=== PATIENT | female | born 1990 | race Caucasian/White ===

== ENCOUNTER 2020-10-03 14:55 | Emergency (ER) | payer OTHER, SELFPAY ==
[2020-10-03 15:16] VITALS: BP 141/88; PULSE 87; RESP 16; TEMP 36.9
--- NOTE | 2020-10-03 15:58 | ED.EAR ---
HPI - Ear Problem General Chief complaint: Ear Stated complaint: Possible Ear infection Time Seen by Provider: 10/03/20 15:58 Source: patient Limitations: no limitations History of Present Illness HPI Narrative: Julieta Barth is a 30 yo female with no PMH who comes with L ear, ringing, muffled hearing. 9 jacques ago had cold sympoms that are mostly resolved. Still has ear pain and is a feeling back to normal; no fever, no nausea, no vomiting Related Data Allergies Allergy/AdvReac Type Severity Reaction Status Date / Time No Known Allergies Allergy Verified 10/03/20 15:36 Review of Systems Review of Systems: CONSTITUTIONAL: Denies fever, chills, sweats. EYES: Denies visual changes, redness, discharge. ENT: has rhinorrhea, has congestion, sore throat, left otalgia. CARDIOVASCULAR: Denies chest pain, palpitations, edema. RESPIRATORY: Denies dyspnea, wheezing, cough GASTROINTESTINAL: Denies abdominal pain, nausea, vomiting, diarrhea. GENITOURINARY: Denies dysuria, hematuria, abnormal discharge SKIN: Denies rash or itching. NEUROLOGIC: Denies numbness, or focal weakness. PSYCHIATRIC: Denies anxiety or depression. PMFSH Past Medical History Medical History (Updated 10/03/20 @ 16:12 by Tosin Serna CNP) No acute medical problems Surgical History Surgical History (Updated 10/03/20 @ 16:00 by Tosin Serna CNP) H/O tubal ligation Family History Family History Other Hypertension Social History Social History (Updated 10/03/20 @ 16:07 by Tosin Serna CNP) Smoking status: Never smoker Alcohol intake: former Alcohol use details: Quit drinking the last few years Comments At time of signature, I agree with nursing past medical, surgical, social and family history. There is no relevant family history pertinent to the presenting complaint. Exam Narrative: GENERAL: This is a well-nourished, well-developed patient, in mild distress. HEAD: normocephalic, atraumatic. EYES: Sclera clear/white. Vision is grossly intact. EARS: External ears normal, auditory canals clear on right and erythema on left with fluid behind TM on left so that its bulging . Hearing grossly intact, although hearing decreased on left. NOSE: External nose normal without nasal discharge, nares without redness, no rhinorrhea. THROAT: Mucous membranes moist, posterior pharynx erythema NECK: Neck supple, non-tender CARDIOVASCULAR: Regular rate and rhythm without murmurs, gallops, or rubs. RESPIRATORY: Clear to auscultation. Breath sounds equal bilaterally. No wheezes, rales, or rhonchi. GASTROINTESTINAL: Not done SKIN: warm, intact with no suspicious lesions or rash, good texture and turgor. NEURO: awake, alert, and oriented to person, place and time. There were no obvious focal neurologic abnormalities. Steady gait EXTREMITIES: Normal range of motion. BACK: Nontender without deformity Course Course Emergency Course: [facility] complaints of left ear pain and muffling and generalized sinus symptoms that have improved since this started in the last 9 days Started on polymyxin Eardrops and recommended use of Zyrtec daily and Flonase Vital Signs Vital signs: Vital Signs Temperature 98.4 F 10/03/20 15:16 Pulse Rate 87 10/03/20 15:16 Respiratory Rate 16 10/03/20 15:16 Blood Pressure 141/88 H 10/03/20 15:16 Temperature 98.4 F 10/03/20 15:16 Pulse Rate 87 10/03/20 15:16 Respiratory Rate 16 10/03/20 15:16 Blood Pressure 141/88 H 10/03/20 15:16 Medical Decision Making Differential Diagnosis Differential Diagnosis: Sinusitis versus rhinosinusitis versus Covid versus ear infection Vital Signs Vital Signs: Vital Signs Temperature 98.4 F 10/03/20 15:16 Pulse Rate 87 10/03/20 15:16 Respiratory Rate 16 10/03/20 15:16 Blood Pressure 141/88 H 10/03/20 15:16 Temperature 98.4 F 10/03/20 15:16 Pulse Rate
== END 2020-10-03 16:42 | disposition home or self-care (01) ==
PROVIDERS: Emergency Provider Nurse Practitioner
DX: H66.002 Acute suppurative otitis media without spontaneous rupture of ear drum, left ear (principal)
CPT/HCPCS: 99203; G0463

== ENCOUNTER 2021-12-20 13:40 | Emergency (ER) | payer OTHER, SELFPAY ==
--- NOTE | 2021-12-20 13:43 | ED.URI ---
HPI - URI/Sore Throat General Stated Complaint: sore throat Time Seen by Provider: 12/20/21 13:43 Source: patient and RN notes reviewed History of Present Illness HPI Narrative: patient is a 31-year-old female who presents to urgent care with complaints a sore throat for 2 days. Patient denies any fever, nausea, vomiting exposures to illness. Patient on anything [id number] for her symptoms. No other acute complaints. No acute distress noted. Patient aware of the plan of care. Some parts of this dictation were generated by voice recognition software and may contain typographical and/or grammatical inaccuracies. Related Data Home Medications Medication Instructions Recorded Confirmed No Home Medications 12/20/21 12/20/21 Allergies Allergy/AdvReac Type Severity Reaction Status Date / Time No Known Allergies Allergy Verified 12/20/21 14:01 Review of Systems Review of Systems: CONSTITUTIONAL: Denies fever, chills, or sweats. EYES: Denies visual changes, redness, or discharge. ENT: Denies rhinorrhea, congestion. Reports a sore throat CARDIOVASCULAR: Denies chest pain, palpitations, or edema. RESPIRATORY: Denies cough or dyspnea. GASTROINTESTINAL: Denies abdominal pain, nausea, vomiting, or diarrhea. GENITOURINARY: Denies dysuria or hematuria. SKIN: Denies rash or itching. MUSCULOSKELETAL: Denies back pain, joint pain, or myalgia. NEUROLOGIC: Denies headache, numbness, or weakness. All other systems reviewed are negative, except as documented in HPI. [facility] Past Medical History Medical History (Updated 12/20/21 @ 14:02 by MORENITA Booker) No acute medical problems Surgical History Surgical History (Updated 10/03/20 @ 16:00 by Tosin Serna, JAZMINE) H/O tubal ligation Family History Family History Other Hypertension Social History Social History (Updated 10/03/20 @ 16:07 by Tosin Serna, JAZMINE) Smoking status: Never smoker Alcohol intake: former Alcohol use details: Quit drinking the last few years Comments At the time of my signature, I reviewed and agree with the nursing past medical, surgical, social, and family history. There is no relevant family history pertinent to the patient complaint. Exam Narrative: GENERAL: This is a well-nourished, well-developed patient, in no apparent distress. HEAD: normocephalic, atraumatic. EYES: PERRL. Sclera clear/white. Vision is grossly intact. EARS: External ears normal, auditory canals clear and without drainage, TMs normal without perforation. Hearing grossly intact. NOSE: External nose normal with no obvious nasal discharge, nares without redness, no rhinorrhea. THROAT: Mucous membranes moist, mild erythema to posterior oropharynx with mild bilateral tonsillar edema without exudate or ulceration. Moderate postnasal drainage. NECK: Neck supple, non-tender without lymphadenopathy CARDIOVASCULAR: Regular rate and rhythm without murmurs, gallops, or rubs. RESPIRATORY: Clear to auscultation. Breath sounds equal bilaterally. No wheezes, rales, or rhonchi. SKIN: warm, intact with no suspicious lesions or rash, good texture and turgor. NEURO: awake, alert, and oriented to person, place and time. There were no obvious focal neurologic abnormalities. EXTREMITIES: No clubbing, cyanosis, or edema. Course Course Level of Care: Express Care Visit Vital Signs Vital signs: Vital Signs Temperature 98 F 12/20/21 13:44 Pulse Rate 87 12/20/21 13:44 Respiratory Rate 16 12/20/21 13:44 Blood Pressure 122/67 12/20/21 13:44 Pulse Oximetry 100 12/20/21 13:44 Oxygen Delivery Room Air 12/20/21 13:44 Temperature 98 F 12/20/21 13:44 Pulse Rate 87 12/20/21 13:44 Respiratory Rate 16 12/20/21 13:44 Blood Pressure 122/67 12/20/21 13:44 Pulse Oximetry 100 12/20/21 13:44 Oxygen Delivery Room Air 12/20/21 13:44 Review MDM - URI/Cheri Thro
[2021-12-20 13:44] VITALS: BP 122/67; PULSE 87; RESP 16; TEMP 36.6; O2SAT 100
== END 2021-12-20 14:05 | disposition home or self-care (01) ==
PROVIDERS: Emergency Provider Nurse Practitioner Family
DX: J02.9 Acute pharyngitis, unspecified (principal)
CPT/HCPCS: 87081; 87880; 99213; G0463

== ENCOUNTER 2022-05-03 16:50 | Emergency (ER) | payer OTHER, SELFPAY ==
[2022-05-03 16:57] VITALS: BP 120/69; PULSE 92; RESP 14; TEMP 36.9; O2SAT 100
--- NOTE | 2022-05-03 17:31 | ED.URI ---
HPI - URI/Sore Throat General Chief Complaint: Upper Respiratory Infection Stated Complaint: Sore Throat Time Seen by Provider: 05/03/22 17:20 Source: patient, RN notes reviewed and old records reviewed Mode of arrival: ambulatory Limitations: no limitations History of Present Illness HPI Narrative: 32-year-old female presents to [facility] with complaints sore throat headache since Saturday patient states she has taken some ibuprofen for her complaints. Patient reports that she has had some nasal congestion and chills does not know about any fevers. Patient reports her kids have had strep also this past week. Patient has not had any medication prior to arrival today. Patient reports that she took home COVID test that was negative. MD elicited complaint: sore throat and other (Headache) Onset (ago): day(s) (2) Pain scale (0-10): 9 Treatments prior to arrival: ibuprofen Related Data Home Medications Medication Instructions Recorded Confirmed No Home Medications 12/20/21 05/03/22 Allergies Allergy/AdvReac Type Severity Reaction Status Date / Time No Known Allergies Allergy Verified 05/03/22 17:02 Review of Systems Review of Systems: CONSTITUTIONAL Positive malaise, chills, sweats, or fever. EYES: Denies visual changes, redness, or discharge. ENT: Reports rhinorrhea, congestion, sinus pain, no otalgia positive for sore throat. CARDIOVASCULAR: Denies chest pain, palpitations, or edema. RESPIRATORY: Reports cough.? Denies dyspnea. GASTROINTESTINAL: Denies abdominal pain, nausea, vomiting, diarrhea SKIN: Denies rash or itching. MUSCULOSKELETAL: Denies myalgia. NEUROLOGIC: Positive headache. All systems reviewed & are unremarkable except as noted in HPI and below PMFSH Past Medical History Medical History No acute medical problems Surgical History Surgical History H/O tubal ligation Family History Family History Other Hypertension Social History Social History (Updated 05/06/22 @ 08:12 by Lilibeth Urbano NP) Smoking packs per day: 0.5 Smoking cigarettes per day: 10.0 Years smoked: 6 Smoking pack-years: 3.00 Smoking status: Current every day smoker Alcohol intake: former Alcohol use details: Quit drinking the last few years Substance use type: does not use Living arrangements: with family Gender identity (if verbalized by the patient): Female Comments At time of signature, agree with nursing past medical, surgical, social and family history. There is no relevant family history pertinent to the presenting complaint Exam Narrative: GENERAL: Well-appearing, well-nourished, and in no acute distress. HEAD: Normocephalic EYES: PERRLA, conjunctivae clear ENT: Nares clear, turbinates edematous and erythematous, clear to light green discharge. Mucous membranes moist. TM pearly house with dull light reflex bilaterally; no tragal tenderness. Oropharynx erythematous without lesions. Tonsils red mildly enlarged and without exudate, no drooling, no hoarseness, no trismus, uvula midline. NECK: Supple. No lymphadenopathy CHEST: Clear to auscultation, breath sounds equal. No wheezing, rhonchi, rales, or stridor. No respiratory distress, speaks in full sentences. SAO2 100% on room air HEART: Regular rate and rhythm. No murmur heard. SKIN: Warm, dry, no rash. NEURO: Alert and oriented x3. PSYCH: Normal mood and affect Course Course Emergency Course: Patient is aware of diagnosis, understands and agrees to treatment plan.? Anticipatory guidance given.? Patient agrees to follow-up as directed and is aware of reasons to seek care at the emergency department. Portions of this record may have been created with voice recognition software Level of Care: Express Care Visit Vital Signs Vital signs:
== END 2022-05-03 17:58 | disposition home or self-care (01) ==
PROVIDERS: Emergency Provider Registered Nurse; PCP Family Medicine
DX: J06.9 Acute upper respiratory infection, unspecified (principal); F17.210 Nicotine dependence, cigarettes, uncomplicated
CPT/HCPCS: 87081; 87880; 99213; G0463